=== PATIENT | male | born 1980 | race Caucasian/White ===

== ENCOUNTER 2017-03-21 19:20 | Emergency (ER) | payer BC ==
[~2017-03-21] VITALS: Ht 185.4 cm; Wt 196.8 kg
[~2017-03-21 19:20] MED LIST: DVN160125 PO; SERT-234 PO
[2017-03-21 19:23] VITALS: TEMP 36.9; Ht 185.4 cm; Wt 196.8 kg
[2017-03-21] MEDS ORDERED: DIAZEPAM INJ 5 MG/ML 2 ML CARP IV STA (19:35)
[2017-03-21] MEDS ORDERED: METOCLOPRAMIDE HCL INJ 5 MG/ML 2 ML VIAL IV STA (19:35)
[2017-03-21] MEDS ORDERED: GLUCAGON INJ 1 MG in SYRINGE 0 ML IV STA (19:35)
[2017-03-21] MEDS ORDERED: SODIUM CHLORIDE 0.9% 1000ML 1,000 ML IV STA (19:35)
[2017-03-21] MEDS ORDERED: NITROGLYCERIN OINT 2% 1GM PACKET EXT STA (19:35)
--- NOTE | 2017-03-21 19:57 | EMERGENCY ROOM VISIT NOTE ---
History Report prepared by Gautam: Gus Batres Under the Supervision of: Dr. Odell Cedeno M.D. First contact with patient: 19:30 Chief Complaint: FOOD BOLUS Stated Complaint: RECENT BYPASS SURG, SOMETHING IS STUCK History of Present Illness The patient is a 36 year old male who presents to the Emergency Room with complaints of persistent illness that started earlier today. The patient had gastric bypass on February 24 and is in stage 3 of starting to bring foods back into his diet. Today, he ate ham as thinly sliced as he could. He felt okay for an hour and then he wasn't able to keep anything down including fluids. He called his surgeon in [place] who recommended he present to the ED if he wasn' t able to keep fluids down. The patient has also been spitting up his own saliva. The patient denies any abdominal pain at this time. Source of History: patient Onset: today Position: other (GI) Timing: other (persistent) Associated Symptoms: + vomiting, No abdominal pain Note: Other associated symptoms: spitting up own saliva Review of Systems See HPI for pertinent positives & negatives. A total of 10 systems reviewed and were otherwise negative. Past Medical & Surgical Medical Problems: (1) Asthma (2) Diabetes (3) Hypertension (4) Skin problem (5) Stomach problems Surgical Problems: (1) S/P gastric bypass Family History FH: cancer FH: diabetes mellitus FH: gallbladder disease FH: heart disease FH: hypertension Kidney stone Social History Smoking Status: Never Smoker Alcohol Use: occasionally Housing Status: lives with significant other Occupation Status: employed Current/Historical Medications Scheduled Amlodipine Besylate (Norvasc), 5 MG PO DAILY Atorvastatin (Lipitor), 20 MG PO HS Buspirone Hcl (Buspirone Hcl), 10 MG PO TID Carvedilol (Coreg), 25 MG PO BID Duloxetine HCl (Cymbalta), 30 MG PO DAILY Duloxetine Hcl (Cymbalta), 60 MG PO DAILY Hydralazine Hcl (Apresoline), 50 MG PO BID Levothyroxine Sodium (Synthroid), 50 MCG PO QAM Montelukast Sodium (Montelukast Sodium), 10 MG PO HS Omeprazole (Prilosec), 20 MG PO DAILY Scheduled PRN Acetaminophen (Tylenol), 1,000 MG PO Q6H PRN for Pain Albuterol Sulfate (Proair Respiclick), 2 PUFFS INH UD PRN for SOB/Wheezing Beclomethasone Dip (Qvar), 1 PUFF INH DAILY PRN for SOB/Wheezing Ondansetron Hcl (Zofran), 4 MG PO UD PRN for Nausea Simethicone (Simethicone), 180 MG PO QID PRN for Gas Allergies Coded Allergies: Lisinopril (Verified Adverse Reaction, Intermediate, Cough, 03/21/17) Physical Exam Vital Signs Date Time Temp Pulse Resp B/P Pulse Ox O2 Delivery O2 Flow Rate FiO2 03/21/17 23:43 83 20 142/84 99 03/21/17 21:29 148/73 98 Room Air 03/21/17 21:20 79 21 03/21/17 20:50 79 21 160/86 97 Room Air 03/21/17 20:48 175/84 03/21/17 20:23 82 03/21/17 20:21 Room Air 03/21/17 19:23 36.9 83 22 143/82 97 Room Air Physical Exam GENERAL: Patient is a healthy-appearing well-nourished, has a bag full of saliva by bedside. HEAD: Normocephalic atraumatic EYES: Ocular movements intact pupils equal and react to light OROPHARYNX mucous membranes are moist no exudates present no erythema or edema present NECK: Supple no nuchal rigidity CHEST: Good equal expansion LUNGS: Clear and equal to auscultation CARDIAC: Normal S1 and S2 ABDOMEN: Soft nontender no guarding BACK: No CVA tenderness EXTREMITIES: No pain upon palpation normal muscle strength in all groups no clubbing cyanosis or edema NEURO: Patient is following commands is answering questions appropriately. Alert and oriented x3 Cranial Nerves 2-12 grossly intact Medical Decision & Procedures ER Provider Diagnostic Interpretation: CT results as stated below per my review and radiologist interpretation: CT OF THE ABDOMEN AND PELVIS WITH CONTRAST CLINICAL HISTORY: Unable to swallow, gastric bypass. COMPARISON STUDY: None. TECHNIQUE: Following IV administration of 113 mL of Optiray-320, axial images of the abdomen and pelvis were obtained from the lung bases to the proximal femurs. Images were reviewed in the axial, sagittal, and coronal planes. IV contrast was administered without complication. CT DOSE: 2212.24 mGy.cm FINDINGS: Postsurgical findings consistent with Norris-en-Y gastric bypass are noted. Visualized portions of the esophagus and the gastric pouch are fluid-filled and moderately dilated. This raises the possibility of an obstruction at the level of the gastrojejunostomy. No additional dilated loops of bowel are identified. This exam is compromised due to body wall contacting the anterior. There is fatty infiltration of the liver. The spleen, adrenal glands, kidneys and pancreas are normal. The appendix is likely visualized and is normal. There is a fat-containing umbilical hernia. A 3.4 cm fat-containing abnormality within the right lower quadrant is of doubtful significance. There is no pneumatosis, free air or portal venous gas. There is colonic diverticulosis without evidence for acute diverticulitis. There is no fluid collection to suggest an abscess. No suspicious skeletal lesions are identified. IMPRESSION: 1. Status post Norrsi-en-Y gastric bypass. Fluid-filled, moderately dilated distal esophagus and gastric pouch raise the possibility of an obstruction/stricture at the gastrojejunostomy. 2. Fatty liver. 3. Fat-containing umbilical hernia. 4. 3.4 cm ill-defined fat-containing structure within the right lower quadrant. This is nonspecific but of doubtful clinical significance. Electronically signed by: El Miguel M.D. 03/21/2017 8:52 PM Dictated Date/Time: 03/21/2017 8:42 PM Laboratory Results 03/21/17 19:50 Red Blood Count 5.02, Mean Corpuscular Volume 86.7, Mean Corpuscular Hemoglobin 28.9, Mean Corpuscular Hemoglobin Concent 33.3, Mean Platelet Volume 12.4, Neutrophils (%) (Auto) 68.4, Lymphocytes (%) (Auto) 20.7, Monocytes (%) (Auto) 7.8, Eosinophils (%) (Auto) 2.8, Basophils (%) (Auto) 0.2, Neutrophils # (Auto) 5.67, Lymphocytes # (Auto) 1.72, Monocytes # (Auto) 0.65, Eosinophils # (Auto) 0.23, Basophils # (Auto) 0.02 03/21/17 19:50 Test 03/21/17 19:50 03/21/17 19:59 White Blood Count 8.30 K/uL (4.8-10.8) Red Blood Count 5.02 M/uL (4.7-6.1) Hemoglobin 14.5 g/dL (14.0-18.0) Hematocrit 43.5 % (42-52) Mean Corpuscular Volume 86.7 fL (80-100) Mean Corpuscular Hemoglobin 28.9 pg (25-34) Mean Corpuscular Hemoglobin Concent 33.3 g/dl (32-36) Platelet Count 228 K/uL (130-400) Mean Platelet Volume 12.4 fL (7.4-10.4) Neutrophils (%) (Auto) 68.4 % Lymphocytes (%) (Auto) 20.7 % Monocytes (%) (Auto) 7.8 % Eosinophils (%) (Auto) 2.8 % Basophils (%) (Auto) 0.2 % Neutrophils # (Auto) 5.67 K/uL (1.4-6.5) Lymphocytes # (Auto) 1.72 K/uL (1.2-3.4) Monocytes # (Auto) 0.65 K/uL (0.11-0.59) Eosinophils # (Auto) 0.23 K/uL (0-0.5) Basophils # (Auto) 0.02 K/uL (0-0.2) RDW Standard Deviation 49.6 fL (36.4-46.3) RDW Coefficient of Variation 15.8 % (11.5-14.5) Immature Granulocyte % (Auto) 0.1 % Immature Granulocyte # (Auto) 0.01 K/uL (0.00-0.02) Est Creatinine Clear Calc Drug Dose 194.4 ml/min Estimated GFR () 119.7 Estimated GFR (Non- 103.3 BUN/Creatinine Ratio 9.3 (10-20) Calcium Level 9.1 mg/dl (8.5-10.1) Total Bilirubin 0.7 mg/dl (0.2-1) Direct Bilirubin 0.2 mg/dl (0-0.2) Aspartate Amino Transf (AST/SGOT) 41 U/L (15-37) Alanine Aminotransferase (ALT/SGPT) 87 U/L (12-78) Alkaline Phosphatase 77 U/L (45-117) Total Protein 8.2 gm/dl (6.4-8.2) Albumin 4.0 gm/dl (3.4-5.0) Lipase 264 U/L (73-393) Bedside Hemoglobin 15.0 g/dl (14.0-18.0) Bedside Hematocrit 44 % (42-52) Bedside Sodium 143 mEq/L (135-144) Bedside Potassium 3.5 mEq/L (3.3-5.0) Bedside Chloride 103 mEq/L (101-112) Bedside Total CO2 23 mEq/l (24-31) Anion Gap 22.0 mmol/L (16-25) Bedside Blood Urea Nitrogen 8 mg/dl (7-18) Bedside Creatinine 0.9 mg/dl (0.6-1.3) Bedside Glucose (other) 124 mg/dl (70-99) Bedside Ionized Calcium (Sp) 1.14 mmol/l (1.12-1.32) Labs reviewed by ED physician. Medications Administered Medications (Trade) Dose Ordered Sig/Frances Route Start Time Stop Time Status Last Admin Dose Admin Metoclopramide HCl (Reglan Inj) 10 mg NOW STAT IV 03/21/17 19:35 03/21/17 19:39 DC 03/21/17 20:05 10 MG Diazepam (Valium Inj) 10 mg NOW STAT IV 03/21/17 19:35 03/21/17 19:39 DC 03/21/17 20:05 10 MG Nitroglycerin 1 inch 1 inch NOW STAT EXT 03/21/17 19:35 03/21/17 19:39 DC 03/21/17 19:35 1 INCH Sodium Chloride (Nss 1000ml) 1,000 ml @ 999 mls/hr Q1H1M STAT IV 03/21/17 19:35 03/21/17 20:35 DC 03/21/17 20:06 999 MLS/HR Glucagon (Glucagon Inj) 1 mg NOW ONCE IV 03/21/17 20:00 03/21/17 20:01 DC 03/21/17 20:05 1 MG ED Course 1924: Past medical records reviewed. The patient was evaluated in room B2. A complete history and physical examination was performed. 1934: Ordered NSS 1000 ml @ 999 mls/hr IV, Nitroglycerin 1 inch EXT, Valium Inj 10 mg IV, Reglan Inj 10 mg IV. 1999: Ordered Glucagon 1 mg IV. 2116: At this time, I discussed the patient's case with Dr. Rich - General Surgery [facility] and he accepted the patient for transfer for further evaluation at [facility]. Medical Decision Differential diagnosis: Etiologies such as appendicitis, diverticulitis, PUD, biliary pathology, UTI, pancreatitis, obstruction, mesenteric ischemia, aortic pathology, infections, inflammatory bowel disease, renal colic, as well as others were entertained. Medication Reconciliation: I attest that I have personally reviewed the patient' s current medication list Blood Pressure Screening: Patient was found to have an elevated blood pressure and was referred to their primary care doctor for recheck and further treatment This is a 36-year-old male who recently had gastric bypass surgery. After eating today the patient can no longer swallow his own saliva. He actively vomits up his saliva when it does not cut down. For this reason an IV was established, the patient was given Reglan, nitroglycerin, glucagon. Repeat examination revealed no improvement patient's symptoms. Patient was sent for CAT scan of the abdomen pelvis which was concerning for an outlet obstruction area because of his recent surgery the patient was discussed with Pascale Silva in [place] who asked that the patient be transferred. Patient was in agreement with the treatment plan. Consults Time Called: 2111 Consulting Physician: Dr. Rich - General Surgery [facility] Returned Call: [phone] At this time, I discussed the patient's case with Dr. Rich and he accepted the patient for transfer for further evaluation at [facility]. Impression Primary Impression: Esophageal stricture Critical Care I have personally spent greater than 30 minutes of critical care time in the direct management of this patient. This includes bedside care, interpretation of diagnostic studies, and testing, discussion with consultants, patient, and family members, and other required patient management activities. This 30 minutes is in excess of all separately billable procedures. Scribe Attestation The scribe's documentation has been prepared under my direction and personally reviewed by me in its entirety. I confirm that the note above accurately reflects all work, treatment, procedures, and medical decision making performed by me. Departure Information Dispostion Transfer Acute Care Facility ([facility]) Referrals Virgen James M.D. (PCP)
[2017-03-21] MEDS ORDERED: GLUCAGON FOR INJ 1 MG VIAL IV ONE (20:00)
[2017-03-21 20:07] LABS: BASO % 0.2 %; BASO ABS # 0.02 K/uL (0-0.2); COMPLETE YES; EOS % 2.8 %; HEMATOCRIT 43.5 % (42-52); IG% 0.1 %; LYMPH % 20.7 %; LYMPH ABS # 1.72 K/uL (1.2-3.4); MEAN CELL VOLUME 86.7 fL (80-100); MEAN CORPUSCULAR HEMOGLOBIN 28.9 pg (25-34); MEAN CORPUSCULAR HGB CONC 33.3 g/dl (32-36); MEAN PLATELET VOLUME 12.4 fL (7.4-10.4); MONO % 7.8 %; NEUT % 68.4 %; PLATELET COUNT 228 K/uL (130-400); RED BLOOD COUNT 5.02 M/uL (4.7-6.1)
[2017-03-21] MEDS ORDERED: NITROGLYCERIN OINT 2% 1GM PACKET ONE (20:17)
[2017-03-21 20:23] LABS: ISTAT CREATININE 0.9 mg/dl (0.6-1.3); ISTAT IONIZED CALCIUM 1.14 mmol/l (1.12-1.32)
[2017-03-21 20:24] LABS: BUN/CREATININE RATIO 9.3 (10-20); CALCIUM 9.1 mg/dl (8.5-10.1); CREATININE 0.95 mg/dl (0.60-1.40); POTASSIUM 3.6 mmol/L (3.5-5.1)
[2017-03-21] MEDS ORDERED: OPTIRAY 320 IV PRN (20:45)
--- NOTE | 2017-03-21 20:53 | DIAGNOSTIC IMAGING REPORT ---
CT OF THE ABDOMEN AND PELVIS WITH CONTRAST CLINICAL HISTORY: Unable to swallow, gastric bypass. COMPARISON STUDY: None. TECHNIQUE: Following IV administration of 113 mL of Optiray-320, axial images of the abdomen and pelvis were obtained from the lung bases to the proximal femurs. Images were reviewed in the axial, sagittal, and coronal planes. IV contrast was administered without complication. CT DOSE: 2212.24 mGy.cm FINDINGS: Postsurgical findings consistent with Norris-en-Y gastric bypass are noted. Visualized portions of the esophagus and the gastric pouch are fluid-filled and moderately dilated. This raises the possibility of an obstruction at the level of the gastrojejunostomy. No additional dilated loops of bowel are identified. This exam is compromised due to body wall contacting the anterior. There is fatty infiltration of the liver. The spleen, adrenal glands, kidneys and pancreas are normal. The appendix is likely visualized and is normal. There is a fat-containing umbilical hernia. A 3.4 cm fat-containing abnormality within the right lower quadrant is of doubtful significance. There is no pneumatosis, free air or portal venous gas. There is colonic diverticulosis without evidence for acute diverticulitis. There is no fluid collection to suggest an abscess. No suspicious skeletal lesions are identified. IMPRESSION: 1. Status post Norris-en-Y gastric bypass. Fluid-filled, moderately dilated distal esophagus and gastric pouch raise the possibility of an obstruction/stricture at the gastrojejunostomy. 2. Fatty liver. 3. Fat-containing umbilical hernia. 4. 3.4 cm ill-defined fat-containing structure within the right lower quadrant. This is nonspecific but of doubtful clinical significance. Electronically signed by: El Miguel M.D. 03/21/2017 8:52 PM Dictated Date/Time: 03/21/2017 8:42 PM
[2017-03-21] MEDS ORDERED: ONDA4TAB46 PO (20:57)
[2017-03-21] MEDS ORDERED: PRLSR20 PO (20:57)
[2017-03-21] MEDS ORDERED: ATOR-22 PO (20:57)
[2017-03-21] MEDS ORDERED: ACET-1256 PO (20:57)
[2017-03-21] MEDS ORDERED: SIME1CAP11 PO (20:57)
[2017-03-21] MEDS ORDERED: DULO60CA44 PO (20:58)
[2017-03-21] MEDS ORDERED: CYM/30 PO (20:58)
[2017-03-21] MEDS ORDERED: QVRINH80 INH (20:58)
[2017-03-21] MEDS ORDERED: ALBU18002 INH (20:58)
[2017-03-21] MEDS ORDERED: BUSP-8 PO (20:58)
[2017-03-21] MEDS ORDERED: AMLO5TAB2 PO (20:58)
[2017-03-21] MEDS ORDERED: LEVO50TA PO (20:58)
[2017-03-21] MEDS ORDERED: HYDR100T12 PO (20:58)
[2017-03-21] MEDS ORDERED: MONT1TAB5 PO (20:58)
[2017-03-21] MEDS ORDERED: CARV25TA2 PO (20:58)
[2017-03-21 23:43] VITALS: BP 142/84; PULSE 83; O2SAT 99
== END 2017-03-21 23:44 | disposition short-term general hospital (02) ==
LOC: C.EDB 19:23
DX: K22.2 Esophageal obstruction (principal); J45.909 Unspecified asthma, uncomplicated; E11.9 Type 2 diabetes mellitus without complications; I10 Essential (primary) hypertension; Z98.84 Bariatric surgery status; Z83.3 Family history of diabetes mellitus; Z84.1 Family history of disorders of kidney and ureter; Z82.49 Family history of ischemic heart disease and other diseases of the circulatory system; Z79.899 Other long term (current) drug therapy